=== PATIENT | female | born 1980 | race Caucasian/White ===

== ENCOUNTER 2020-02-09 07:26 | Emergency (ER) | payer SELFPAY ==
[~2020-02-09] VITALS: Ht 154 cm; Wt 79.2 kg
--- NOTE | 2020-02-09 08:15 | ED Fall/Injury ---
General Chief Complaint: Chest Wall Stated Complaint: RIGHT SIDE RIB PAIN Nursing Triage Note: pt presents to ed with complaints of r sided rib pain after falling when trying to get out of bed last night. pt reports she fell onto her r side hitting some wood "doggy steps" that were next to her bed. Pt also reports some soa. Pt denies hitting head or any other injury. Source: patient Exam Limitations: no limitations History of Present Illness Date Seen by Provider: Feb 09, 2020 Time Seen by Provider: 07:33 Initial Comments This 39-year-old woman presents to the emergency room with complaints of right lateral lower chest pain after falling and injuring herself last night. She got up in the night to go to the restroom and tripped. She fell but did not realize she was injured last night. She was under the influence of alcohol. This morning she woke with 9/10 pain in the right lower lateral chest wall. She has bruising over this area. She has significant pain with breathing and moving. She denies any injury to any other body part. She has no pain or tenderness in the abdomen below the costal margin. She is mildly hypertensive but otherwise vital signs are normal. She denies any other injuries to any other parts of the body. Allergies and Home Medications Allergies Coded Allergies: No Known Drug Allergies (Unverified , 02/09/20) Home Medications Tramadol HCl 50 Mg Tablet, 50 MG PO Q6H PRN for PAIN-SEVERE (8-10) Prescribed by: SHOLA MARY on 02/09/20 0901 Patient Home Medication List Home Medication List Reviewed: Yes Review of Systems Review of Systems Constitutional: no symptoms reported Eyes: No Symptoms Reported Ears, Nose, Mouth, Throat: no symptoms reported Respiratory: see HPI Cardiovascular: no symptoms reported Gastrointestinal: no symptoms reported Genitourinary: no symptoms reported : No Musculoskeletal: see HPI Skin: see HPI Psychiatric/Neurological: No Symptoms Reported Past Jqzzzch-Ahoalf-Onpmpz Hx Past Med/Social Hx: Reviewed Nursing Past Med/Soc Hx Patient Social History Alcohol Use: Regular Use Alcohol Beverage of Choice: Beer Recreational Drug Use: Yes Drug of Choice: marijuana Smoking Status: Current Everyday Smoker Type Used: Cigarettes Recent Foreign Travel: No Contact w/Someone Who Travel: No Recent Infectious Disease Expo: No Recent Hopitalizations: No Physical Abuse: No Sexual Abuse: No Mistreated: No Fear: No Seasonal Allergies Seasonal Allergies: No Past Medical History Surgeries: No Respiratory: No Cardiac: No Neurological: No : No Last Menstrual Period: Feb 09, 2020 Genitourinary: No Gastrointestinal: No Musculoskeletal: No Endocrine: No HEENT: No Cancer: No Integumentary: No Blood Disorders: No Physical Exam Vital Signs Vital Signs - First Documented 02/09/20 07:39 Temp 36.6 Pulse 82 Resp 16 B/P (MAP) 142/107 (119) Pulse Ox 97 Capillary Refill : Less Than 3 Seconds Height, Weight, BMI Height: '" Weight: lbs. oz. kg; 33.00 BMI Method: General Appearance: WD/WN, no apparent distress HEENT: normal ENT inspection Neck: normal inspection Cardiovascular: regular rate, rhythm, no edema, no murmur Respiratory: lungs clear, normal breath sounds, no respiratory distress, no accessory muscle use, other (chest wall tender to palpation over the right lower anterior and lateral chest. 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, no motor/sensory deficits, alert, normal mood/affect, oriented x 3 Skin: normal color, warm/dry, ecchymosis [place] Coma Score Best Eye Response: (4) Open Spontaneously Best Verbal Response: (5) Oriented Best Motor Response: (6) Obeys Commands [place] Total: 15 Progress/Results/Core Measures Results/Orders My Orders Orders - SHOLA AGUIAR MD Chest Pa/Lat (2 View) (02/09/20 07:38) Ribs, Right 2-3 Views (02/09/20 07:38) Vital Signs/I&O 02/09/20 02/09/20 07:39 09:07 Temp 36.6 Pulse 82 80 Resp 16 18 B/P (MAP) 142/107 (119) 142/98 Pulse Ox 97 97 Blood Pressure Mean: 119 Diagnostic Imaging Diagonstic Imaging: Xray Plain Films/CT/US/NM/MRI: chest Comments Two-view chest x-ray and x-rays of the ribs viewed by me and report reviewed. See reports below: NAME: SHAKIRA BAH [facility] REC#: [id number] PT STATUS: REG ER : 1980 PHYSICIAN: SHOLA AGUIAR MD ADMIT DATE: 02/09/20/ER Draft Date of Exam:02/09/20 CHEST PA/LAT (2 VIEW) INDICATION: Fall and right rib pain. Time of exam 8:07 AM No prior studies are available for comparison. Heart size normal. Lungs are clear. No parenchymal contusion, effusion or pneumothorax is identified. IMPRESSION: No acute abnormality is detected. Dictated on workstation # [id number] Dict: 02/09/20 0844 Trans: 02/09/20 08 PRADIP [id number] Interpreted by: GEOFFREY WHEELER MD NAME: SHAKIRA BAH [facility] REC#: [id number] PT STATUS: REG ER : 1980 PHYSICIAN: SHOLA AGUIAR MD ADMIT DATE: 02/09/20/ER Draft Date of Exam:02/09/20 RIBS, RIGHT 2-3 VIEWS INDICATION: Fall and right rib pain. Time of exam 8:08 AM Multiple views right ribs were obtained. No displaced rib fractures detected. No parenchymal contusion, effusion or pneumothorax is identified. IMPRESSION: No displaced rib fractures detected. Dictated on workstation # [id number] Dict: 02/09/20 0845 Trans: 02/09/20 0847 PRADIP [id number] Interpreted by: GEOFFREY WHEELER MD Departure Impression Primary Impression: Fall on same level Qualified Codes: W18.30XA - Fall on same level, unspecified, initial encounter Additional Impression: Chest wall contusion Qualified Codes: S20.211A - Contusion of right front wall of thorax, initial encounter Disposition: 01 HOME, SELF-CARE Condition: Stable Departure-Patient Inst. Decision time for Depature: 08:59 Referrals: [facility] [place]) Primary Care Physician Patient Instructions: Contusion (DC) Add. Discharge Instructions: Drink plenty of water to stay well-hydrated. You may take ibuprofen up to 600 mg every 6 hours as needed for pain and/or Tylenol (acetaminophen) up to 1000 mg every 6 hours as needed for pain. If you're not getting sufficient pain relief from [id number] medications, you may add Ultram (tramadol) as prescribed. Exercise deep breathing 10 times per hour while awake. You may ice the chest wall in 20 minute intervals to help reduce pain as well. Return to care if you worsening symptoms including worsening shortness of breath, escalating pain, development of fever, etc. Avoid drinking alcohol to excess. All discharge instructions reviewed with patient and/or family. Voiced understanding. Scripts Tramadol HCl (Ultram) 50 Mg Tablet 50 MG PO Q6H PRN for PAIN-SEVERE (8-10), #10 TAB Prov: SHOLA AGUIAR MD 02/09/20 SHOLA AGUIAR MD Feb 09, 2020 08:15
--- NOTE | 2020-02-09 08:47 | Diagnostic Imaging Report ---
INDICATION: Fall and right rib pain. Time of exam 8:07 AM No prior studies are available for comparison. Heart size normal. Lungs are clear. No parenchymal contusion, effusion or pneumothorax is identified. IMPRESSION: No acute abnormality is detected. Dictated by: Dictated on workstation # [id number]
--- NOTE | 2020-02-09 08:48 | Diagnostic Imaging Report ---
INDICATION: Fall and right rib pain. Time of exam 8:08 AM Multiple views right ribs were obtained. No displaced rib fractures detected. No parenchymal contusion, effusion or pneumothorax is identified. IMPRESSION: No displaced rib fractures detected. Dictated by: Dictated on workstation # [id number]
[2020-02-09] MEDS ORDERED: TRAM-42 PO (09:01)
[2020-02-09 09:07] VITALS: BP 142/98
== END 2020-02-09 09:07 | disposition home or self-care (01) ==
LOC: EDUNIT# 07:26 → ER 07:28
DX: S20.211A Contusion of right front wall of thorax, initial encounter (principal); F17.210 Nicotine dependence, cigarettes, uncomplicated; R40.2142 Coma scale, eyes open, spontaneous, at arrival to emergency department; R40.2252 Coma scale, best verbal response, oriented, at arrival to emergency department; R40.2362 Coma scale, best motor response, obeys commands, at arrival to emergency department; W18.30XA Fall on same level, unspecified, initial encounter
CPT/HCPCS: 71046; 71100